=== PATIENT | male | born 1990 | race Native Hawaiian/Other Pacific Islander ===

== ENCOUNTER 2019-07-19 09:51 | Outpatient (CLI) | payer OTHER | END 2019-07-19 19:24 | disposition home or self-care (01) | LOC: RAD 09:51 | DX: I10 Essential (primary) hypertension (principal) ==

== ENCOUNTER 2019-08-07 16:09 | Outpatient (CLI) | payer OTHER | END 2019-08-07 22:59 | disposition home or self-care (01) | LOC: RAD 16:09 | DX: M54.5 Low back pain (principal); M25.551 Pain in right hip ==

== ENCOUNTER 2019-08-09 08:07 | Outpatient (CLI) | payer OTHER | END 2019-08-09 20:13 | disposition home or self-care (01) | LOC: RESP 08:07 | DX: I10 Essential (primary) hypertension (principal) | CPT/HCPCS: 93306 ==

== ENCOUNTER 2022-05-22 08:06 | Outpatient (CLI) | payer BC | END 2022-05-22 19:13 | disposition home or self-care (01) | LOC: US 08:06 | PROVIDERS: ATTEND Internal Medicine | DX: R10.84 Generalized abdominal pain (principal) ==

== ENCOUNTER 2022-06-05 08:21 | Outpatient (CLI) | payer BC | END 2022-06-05 19:21 | disposition home or self-care (01) | LOC: NM 08:21 | PROVIDERS: ATTEND Internal Medicine | DX: R10.84 Generalized abdominal pain (principal) | CPT/HCPCS: A9537 ==

== ENCOUNTER 2022-07-22 11:23 | Day surgery (SDC) | payer BC ==
[~2022-07-22] VITALS: Ht 154.9 cm; Wt 85.7 kg
== END 2022-07-22 14:40 | disposition home or self-care (01) ==
LOC: OR 11:23
PROVIDERS: ATTEND Internal Medicine Gastroenterology
PROC: 0DB68ZX Excision of Stomach, Via Natural or Artificial Opening Endoscopic, Diagnostic (ICD-10-PCS; principal; 2022-07-22)
PROC: 0DB88ZX Excision of Small Intestine, Via Natural or Artificial Opening Endoscopic, Diagnostic (ICD-10-PCS; 2022-07-22)
PROC: 0D738ZZ Dilation of Lower Esophagus, Via Natural or Artificial Opening Endoscopic (ICD-10-PCS; 2022-07-22)
DX: K21.00 Gastro-esophageal reflux disease with esophagitis, without bleeding (principal); K22.2 Esophageal obstruction; K44.9 Diaphragmatic hernia without obstruction or gangrene; K29.50 Unspecified chronic gastritis without bleeding; K26.9 Duodenal ulcer, unspecified as acute or chronic, without hemorrhage or perforation; K29.80 Duodenitis without bleeding; R10.13 Epigastric pain
CPT/HCPCS: J2001; J2704; J7120